=== PATIENT | female | born 1965 | race African-American/Black ===

== ENCOUNTER 2018-11-16 12:12 | Inpatient (IN) | payer OTHER ==
[2018-11-16 12:51] VITALS: BMI 30.7
[2018-11-16] MEDS ORDERED: BENZOCAINE 20 % GEL TUBE MM PRN (13:28)
--- NOTE | 2018-11-16 13:28 | HP ---
CIWA Score - Admission Criteria [facility]ASAS Guidelines: Admission for Medically Managed Detox: Requires at least one of the followin. CIWA greater than 12 2. Seizures within the past 24 hours 3. Delirium tremens within the past 24 hours 4. Hallucinations within the past 24 hours 5. Acute intervention needed for co occurring medical disorder 6. Acute intervention needed for co occurring psychiatric disorder 7. Severe withdrawal that cannot be handled at a lower level of care (continued vomiting, continued diarrhea, abnormal vital signs) requiring intravenous medication and/or fluids 8. Admission ROS S - HPI Chief Complaint: crack/cocaine rehabilitation Allergies/Adverse Reactions: Allergies Allergy/AdvReac Type Severity Reaction Status Date / Time trazodone Allergy Severe Difficulty Verified 11/16/18 12:27 Breathing History of Present Illness: Patient is a 53 yo female with hx of crack /cocaine dependence is here seeking inpatient rehabilitation, report last tx [facility] in 2015, relapsed one year ago. PMHX: HIV right side sciatica (tx with medical marijuana), HDL Psych: anxiety, bipolar, insomnia and depression Denies SI/HI Denies hx of seizures or blackouts Exam Limitations: No Limitations - Ebola screening Have you traveled outside of the country in the last 21 days: No Have you had contact with anyone from an Ebola affected area: No Do you have a fever: No - Review of Systems Constitutional: Changes in sleep EENT: reports: Dental Problems (pending oral sx, multiple caries) Respiratory: reports: No Symptoms reported Cardiac: reports: No Symptoms Reported GI: reports: No Symptoms Reported : reports: No Symptoms Reported Musculoskeletal: reports: Back Pain (right side sciatica) Integumentary: reports: No Symptoms Reported Neuro: reports: No Symptoms reported Endocrine: reports: No Symptoms Reported Hematology: reports: See HPI, Anemia Psychiatric: reports: Orientated x3, Anxious Other Systems: Reviewed and Negative Patient History - Patient Medical History Hx Anemia: No Hx Asthma: No Hx Chronic Obstructive Pulmonary Disease (COPD): No Hx Cancer: No Hx Cardiac Disorders: No Hx Congestive Heart Failure: No Hx Hypertension: No Hx Hypercholesterolemia: Yes Hx Pacemaker: No HX Cerebrovascular Accident: No Hx Seizures: No Hx Dementia: No Hx Diabetes: No Hx Gastrointestinal Disorders: Yes Hx Genitourinary Disorders: No Hx Sexually Transmitted Disorders: (Syphillis 1997 and treated) Hx Renal Disease (ESRD): No Hx Thyroid Disease: No Hx Human Immunodeficiency Virus (HIV): Yes (1988-tx'ed at [facility] , last (08/2015) [id number] , vl undetectable) Hx Hepatitis C: No Hx Depression: Yes Hx Suicide Attempt: Yes (1996, 2010) Hx Bipolar Disorder: Yes Hx Schizophrenia: No - Patient Surgical History Past Surgical History: Yes Hx Neurologic Surgery: No Hx Cataract Extraction: No Hx Cardiac Surgery: No Hx Lung Surgery: No Hx Breast Surgery: No Hx Breast Biopsy: No Hx Abdominal Surgery: No Hx Appendectomy: No Hx Cholecystectomy: No Hx Genitourinary Surgery: Yes (partial hysterectomy ) Hx Section: Yes (x2 ) Hx Orthopedic Surgery: No Anesthesia Reaction: No - PPD History Previous Implant?: No (hx of TB expore in the past with Neg chest x-ray ) Date: 10/29/15 PPD to be Administered?: No - Reproductive History Last Menstrual Period: 10/31/94 Patient : No - Smoking Cessation Smoking history: Current every day smoker Have you smoked in the past 12 months: Yes Aproximately how many cigarettes per day: 5 Cigars Per Day: 0 Hx Chewing Tobacco Use: No Initiated information on smoking cessation: Yes 'Breaking Loose' booklet given: 11/16/18 - Substance & Tx. History Hx Alcohol Use: No Hx Substance Use: Yes Substance Use Type: Cocaine Hx Substance Use Treatment: Yes ([facility] 2016 rehab ) - Substances abused Crack Substance route: Smoking Frequency: Daily Amount used: $300 Age of first use: 28 Date of last use: 11/14/18 Family Disease History - Family Disease History Family Disease History: CA: Grandparent (breast), Other: Mother (alcohol related illness - ) Admission Physical Exam [facility] - Vital Signs Vital Signs: Vital Signs - 24 hr 11/16/18 11/16/18 12:20 12:59 Temperature 97.4 F L 97.4 F L Pulse Rate 85 85 Respiratory 17 17 Rate Blood Pressure 96/74 96/74 - Physical General Appearance: Yes: Appropriately Dressed, Irritable HEENTM: Yes: EOMI, Hearing grossly Normal, Normal ENT Inspection, KIYA, Pharynx Normal, Tm's normal, Other (poor dentition, multiple caries) Respiratory: Yes: Chest Non-Tender, Lungs Clear, Normal Breath Sounds, No Respiratory Distress, No Accessory Muscle Use Neck: Yes: Within Normal Limits Breast: Yes: Breast Exam Deferred Cardiology: Yes: Regular Rhythm Abdominal: Yes: Normal Bowel Sounds, Non Tender, Flat, Soft Genitourinary: Yes: Within Normal Limits Back: Yes: Normal Inspection Musculoskeletal: Yes: full range of Motion, Gait Steady, Pelvis Stable, Back pain (right sided) Extremities: Yes: Normal Capillary Refill, Normal Inspection, Normal Range of Motion, Non-Tender Neurological: Yes: dot compliance coordinator II-XII NML intact, Fully Oriented, Alert, Motor Strength 5/5, Depressed Affect Integumentary: Yes: Normal Color, Dry, Warm Lymphatic: Yes: Within Normal Limits - Diagnostic (1) Sciatica, right side Current Visit: Yes Status: Chronic (2) Cocaine dependence Current Visit: Yes Status: Acute Qualifiers: Substance use status: uncomplicated Qualified Code(s): F14.20 - Cocaine dependence, uncomplicated (3) HIV (human immunodeficiency virus infection) Current Visit: Yes Status: Chronic (4) Hyperlipidemia Current Visit: Yes Status: Chronic Qualifiers: Hyperlipidemia type: unspecified Qualified Code(s): E78.5 - Hyperlipidemia , unspecified (5) Nicotine dependence Current Visit: Yes Status: Chronic Qualifiers: Nicotine product type: cigarettes Substance use status: uncomplicated Qualified Code(s): F17.210 - Nicotine dependence, cigarettes, uncomplicated (6) Obesity Current Visit: Yes Status: Chronic Qualifiers: Obesity type: unspecified obesity type Obesity classification: adult class 1 (BMI 30 - 34.9) Breathalyzer - Breathalyzer Breathalyzer: 0 Urine Drug Screen - Test Device Lot number: [id number] Expiration date: 07/12/20 - Control Is test valid?: Yes - Results Drug screen NEGATIVE: No Urine drug screen results: THC-Marijuana, ROLLY-Cocaine Inpatient Rehab Admission - Rehab Decision to Admit Inpatient rehab admission?: Yes - Initial Determination Are CD services needed?: Yes Free of communicable disease: Yes Not in need of hospitalization: Yes - Rehab Admission Criteria Previous failed treatment: Yes Poor recovery environment: Yes Comorbidities: Yes Lacks judgement: Yes Patient is meeting Inpatient Rehab admission criteria:: Yes
[2018-11-16] MEDS ORDERED: ACETAMINOPHEN 325 MG TABLET (FP) PO PRN (13:29)
[2018-11-16] MEDS ORDERED: guaiFENesin 200 MG/10 ML 10 ML UNIT-DOSE CUPS PO PRN (13:29)
[2018-11-16] MEDS ORDERED: P-EPHED 60MG/TRIPROLIDI 2.5MG TABLET PO PRN (13:29)
[2018-11-16] MEDS ORDERED: LOPERAMIDE HCL 2 MG CAPSULE PO PRN (13:29)
[2018-11-16] MEDS ORDERED: MAGNESIUM CITRATE 300 ML BOTTLE PO PRN (13:29)
[2018-11-16] MEDS ORDERED: MENTHOL/PHENOL 1 EACH UD MM PRN (13:29)
[2018-11-16] MEDS ORDERED: MAGNESIUM HYDROX 2400MG/30ML ORAL SUSPENSION 30 ML CUP PO PRN (13:29)
[2018-11-16] MEDS ORDERED: hydrOXYzine PAMOATE 25 MG CAPSULE (FP) PO PRN (13:29)
[2018-11-16] MEDS ORDERED: NICOTINE POLACRILEX 2 MG GUM BUC PRN (13:29)
--- NOTE | 2018-11-16 13:41 | PN ---
Vickie Progress Note Note: Patient reports she does not wish to take her HARRT meds while in rehab, and that is the reason she did not bring her medications.
[2018-11-16] MEDS: GABAPENTIN 300 MG CAPSULE (FP) PO SCH ×2 (15:16→21:17)
[2018-11-16] MEDS: CYCLOBENZAPRINE HCL 10 MG TABLET (FP) PO SCH ×2 (15:16→21:17)
[2018-11-16 17:51] LABS: HEMATOCRIT 37.2 % (32.4-45.2); HEMOGLOBIN 12.2 GM/dL (10.7-15.3); MCHC 32.8 g/dl (32.0-36.0); MEAN CELL VOLUME 88.4 fl (80-96); MEAN PLT VOLUME 9.8 fl (7.5-11.1); PLATELET COUNT 242 K/MM3 (134-434); RBC 4.21 M/mm3 (3.60-5.2); RDW 14.4 % (11.6-15.6); WHITE BLOOD COUNT 2.2 K/mm3 (4.0-10.0)
[2018-11-16 18:18] LABS: ALBUMIN 3.5 g/dl (3.4-5.0); BILIRUBIN,TOTAL 0.5 mg/dL (0.2-1); BLOOD UREA NITROGEN 15.1 mg/dL (7-18); CALCIUM 8.8 mg/dL (8.5-10.1); CREATININE 1.1 mg/dL (0.55-1.3); POTASSIUM 3.6 mmol/L (3.5-5.1)
[2018-11-16] MEDS: THIAMINE HCL 100 MG TABLET (FP) PO SCH (21:16)
[2018-11-17] MEDS: GABAPENTIN 300 MG CAPSULE (FP) PO SCH ×3 (07:30→21:44)
[2018-11-17] MEDS: CYCLOBENZAPRINE HCL 10 MG TABLET (FP) PO SCH ×3 (07:30→21:44)
[2018-11-17] MEDS: NICOTINE 14 MG/24 HOURS TOPICAL PATCH TD SCH (10:26)
[2018-11-17] MEDS: PRENATAL VITAMINS W/ FOLIC ACID TABLET (FP) PO SCH (10:26)
[2018-11-17] MEDS: ASPIRIN 81 MG CHEWABLE TABLETS PO SCH (10:27)
[2018-11-17] MEDS: ATORVASTATIN CA 10 MG TABLET (FP) PO SCH (10:27)
[2018-11-17] MEDS: PANTOPRAZOLE 20 MG TABLET (FP) PO SCH (10:27)
--- NOTE | 2018-11-17 11:04 | CONSULT ---
[facility] Psychiatric Consult - Data Date of interview: 11/17/18 Admission source: [facility] Identifying data: Readmission to [facility] for this 53 y/o AA female, directly admitted to [address] from [facility], for rehabilitative care addressing crack/cocaine use disorder co-morbid with bipolar disorder. Patient is single, a mother of two, domiciled, unemployed and supported on SSI benefits. Substance Abuse History: Discussed with patient. Ms Nugent admits to a long history of crack abuse. Details in current [facility] report as follows : Smoking history: Current every day smoker. Have you smoked in the past 12 months: Yes. Aproximately how many cigarettes per day: 5. Cigars Per Day: 0. Hx Chewing Tobacco Use: No. Initiated information on smoking cessation: Yes. 'Breaking Loose' booklet given: 11/16/18. - Substance & Tx. History. Hx Alcohol Use: No. Hx Substance Use: Yes. Substance Use Type: Cocaine. Hx Substance Use Treatment: Yes ([facility] 2016 rehab ). - Substances abused. Crack. Substance route: Smoking. Frequency: Daily. Amount used: $300. Age of first use: 28. Date of last use: 11/14/18 Medical History: Medical profile is remarkable for HIV infection since 1988 (on HAART medications), dyslipidemia, sciatica (right leg), antecedent of syphilis and a history of two sections. Noted allergy to trazodone. Psychiatric History: Patient endorses a long history of psychiatric illness. Ms Nugent has reportedly been seeing psychiatrists since 2000 after her suicide attempt via overdose with vitamins. Presents with a history of four psychiatric hospitalizations (all at [facility]). Diagnosed with Bipolar Disorder. Patient has been treated with various psychotropic medications which include valproate, risperidone, wellbutrin XL, sertaline, cogentin and zolpidem. She is currently receiving her psychiatric OPD services at [facility] in the [place] (managed with depakote 500 mg/bid + wellbutrin XL 150 mg/day + cogentin 1 mg/bid + risperdal 3 mg/hs). Not verified at time of this interview. Distant history of suicide attempts (2000 + 2010) via overdose with medications. Physical/Sexual Abuse/Trauma History: Not discussed. Patient declines. Additional Comment: Urine drug screen results: THC-Marijuana, ROLLY-Cocaine. Noted. Mental Status Exam - Mental Status Exam Alert and Oriented to: Time, Place, Person Cognitive Function: Good Patient Appearance: Well Groomed Mood: Nervous, Anxious, Irritable Affect: Appropriate, Mood Congruent, Normal Range Patient Behavior: Fatigued, Cooperative Speech Pattern: Clear, Appropriate Voice Loudness: Normal Thought Process: Goal Oriented Thought Disorder: Not Present Hallucinations: Denies Suicidal Ideation: Denies Homicidal Ideation: Denies Insight/Judgement: Fair Sleep: Well (complains of sleeping " too much " during daytime) Appetite: Good Gait/Station: Normal Psychiatric Findings - Problem List ([place] 1, 2,3) (1) History of bipolar disorder Current Visit: Yes Status: Chronic (2) Cocaine dependence Current Visit: Yes Status: Chronic Qualifiers: Substance use status: uncomplicated Qualified Code(s): F14.20 - Cocaine dependence, uncomplicated (3) Nicotine dependence Current Visit: Yes Status: Chronic Qualifiers: Nicotine product type: cigarettes Substance use status: uncomplicated Qualified Code(s): F17.210 - Nicotine dependence, cigarettes, uncomplicated (4) Substance induced mood disorder Current Visit: Yes Status: Chronic - Initial Treatment Plan Initial Treatment Plan: Records revisited. Director Of Analytical Development [phone] for verification of medications. No information (only voice mail). Message not left on machine (issue of confidentality). Psychoeducation. Support. Groups. Motivational counseling. Patient will be provided with information on relapse prevention (MAT). Ms Nugent requests decrease of valproate dose (believes that it is responsible for her sedation + sleepiness). Medications are on hold until bottles are checked for accuracy of doses. Observation. Discussed with nurse in charge. VA level = 7.2 (suggestive of poor adherence).
[2018-11-17 13:34] LABS: EPI CELLS 16.2 /HPF (0-5/HPF); HYALINE CASTS 9 /lpf (0-8); URINE APPEARANCE CLOUDY; URINE BILIRUBIN NEGATIVE (NEGATIVE); URINE COLOR YELLOW; URINE GLUCOSE (UA) NEGATIVE (NEGATIVE); URINE KETONE NEGATIVE (NEGATIVE); URINE LEUK ESTERASE 3+ (NEGATIVE); URINE NITRITE NEGATIVE (NEGATIVE); URINE PROTEIN TRACE (NEGATIVE); URINE RBC 3 /hpf (0-4); URINE UROBILINOGEN 0.2 mg/dL (0.2-1.0); URINE WBC 323 /hpf (0-5)
[2018-11-17] MEDS: THIAMINE HCL 100 MG TABLET (FP) PO SCH (21:44)
[2018-11-18] MEDS: CYCLOBENZAPRINE HCL 10 MG TABLET (FP) PO SCH ×3 (06:25→21:35)
[2018-11-18] MEDS: GABAPENTIN 300 MG CAPSULE (FP) PO SCH ×3 (06:25→21:35)
[2018-11-18] MEDS: PANTOPRAZOLE 20 MG TABLET (FP) PO SCH (09:03)
[2018-11-18] MEDS: NICOTINE 14 MG/24 HOURS TOPICAL PATCH TD SCH (09:03)
[2018-11-18] MEDS: PRENATAL VITAMINS W/ FOLIC ACID TABLET (FP) PO SCH (09:03)
[2018-11-18] MEDS: ATORVASTATIN CA 10 MG TABLET (FP) PO SCH (09:03)
[2018-11-18] MEDS: ASPIRIN 81 MG CHEWABLE TABLETS PO SCH (09:04)
--- NOTE | 2018-11-18 13:59 | EKG ---
Test Reason : Blood Pressure : / mmHG Vent. Rate : 073 BPM Atrial Rate : 073 BPM P-R Int : 146 ms QRS Dur : 086 ms QT Int : 394 ms P-R-T Axes : 068 -18 054 degrees QTc Int : 434 ms NORMAL SINUS RHYTHM NORMAL ECG NO PREVIOUS ECGS AVAILABLE Confirmed by MD LORENZO, KALEB ([id number]) on 11/18/2018 1:59:09 PM Referred By: Confirmed By:KALEB VENTURA MD
[2018-11-18] MEDS: THIAMINE HCL 100 MG TABLET (FP) PO SCH (21:34)
[2018-11-19] MEDS: CYCLOBENZAPRINE HCL 10 MG TABLET (FP) PO SCH ×3 (06:28→21:29)
[2018-11-19] MEDS: GABAPENTIN 300 MG CAPSULE (FP) PO SCH ×3 (06:28→21:29)
[2018-11-19] MEDS: ATORVASTATIN CA 10 MG TABLET (FP) PO SCH (09:03)
[2018-11-19] MEDS: NICOTINE 14 MG/24 HOURS TOPICAL PATCH TD SCH (09:03)
[2018-11-19] MEDS: ASPIRIN 81 MG CHEWABLE TABLETS PO SCH (09:03)
[2018-11-19] MEDS: PRENATAL VITAMINS W/ FOLIC ACID TABLET (FP) PO SCH (09:04)
[2018-11-19] MEDS: PANTOPRAZOLE 20 MG TABLET (FP) PO SCH (09:04)
--- NOTE | 2018-11-19 10:58 | PN ---
Psychiatric Progress Note Vital Signs: Vital Signs Period Temp Pulse Resp BP Sys/Whipple Pulse Ox Last 24 Hr 97.7 F 75 18-18 107/73 Date of Session: 11/19/18 Chief Complaint:: " I need my psych meds." HPI: This is day four of rehab. Patient admitted to for cocaine dependence co -morbid Bipolar disorder. ROS: Patient is coherent, alert and oriented X3. Current Medications: Active Medications Generic Name Dose Route Start Last Admin Trade Name Freq PRN Reason Stop Dose Admin Acetaminophen 650 mg 11/16/18 13:29 Tylenol - PO Q4H PRN FEVER Al Hydroxide/Mg Hydroxide 30 ml 11/16/18 13:29 Mylanta Oral Suspension - PO Q6H PRN DYSPEPSIA Aspirin 81 mg 11/17/18 10:00 11/19/18 09:03 Asa - PO 81 mg DAILY FIONA Administration Atorvastatin Calcium 10 mg 11/17/18 10:00 11/19/18 09:03 Lipitor - PO 10 mg DAILY FIONA Administration Benzocaine 1 applic 11/16/18 13:28 Anbesol - MM Q6H PRN dentalgia Benztropine Mesylate 0.5 mg 11/19/18 22:00 Cogentin - PO HS FIONA Cyclobenzaprine HCl 10 mg 11/16/18 14:40 11/19/18 06:28 Flexeril - PO 10 mg TID FIONA Administration Divalproex Sodium 500 mg 11/19/18 11:00 Depakote - PO BID [facility] Ergocalciferol 50,000 unit 11/23/18 10:00 Drisdol - PO Q7D@1000 [facility] Eucalyptus/Menthol/Phenol/Sorbitol 1 each 11/16/18 13:29 Cepastat Lozenge - MM Q4H PRN SORE THROAT Gabapentin 600 mg 11/16/18 14:35 11/19/18 06:28 Neurontin - PO 600 mg TID FIONA Administration Guaifenesin 10 ml 11/16/18 13:29 Robitussin - PO Q6H PRN COUGH Hydroxyzine Pamoate 25 mg 11/16/18 13:29 11/18/18 09:04 Vistaril - PO 25 mg Q4H PRN Administration AGITATION Ibuprofen 400 mg 11/16/18 13:29 Motrin - PO Q6H PRN Pain level 4-6 Loperamide HCl 4 mg 11/16/18 13:29 Imodium - PO Q6H PRN DIARRHEA Magnesium Citrate 300 ml 11/16/18 13:29 11/18/18 09:02 Citroma - PO 300 ml Q48H PRN Administration CONSTIPATION Magnesium Hydroxide 30 ml 11/16/18 13:29 11/17/18 17:25 Milk Of Magnesia - PO 30 ml DAILY PRN Administration CONSTIPATION Melatonin 5 mg 11/16/18 22:00 Melatonin PO HS PRN INSOMNIA Nicotine 14 mg 11/17/18 10:00 11/19/18 09:03 Nicoderm Patch - TD 14 mg DAILY FIONA Administration Nicotine Polacrilex 2 mg 11/16/18 13:29 Nicorette Gum - BUC Q2H PRN NICOTINE REPLACEMENT RX Pantoprazole Sodium 20 mg 11/17/18 10:00 11/19/18 09:04 Protonix - PO 20 mg DAILY FIONA Administration Multivit/Folic Acid/Iron 1 tab 11/17/18 10:00 11/19/18 09:04 Vitamins (Sjr) - PO 1 tab DAILY FIONA Administration Pseudoephedrine/Triprolidine 1 combo 11/16/18 13:29 Actifed - PO TID PRN NASAL CONGESTION Sertraline HCl 50 mg 11/19/18 11:00 Zoloft - PO DAILY FIONA Thiamine HCl 100 mg 11/16/18 22:00 11/18/18 21:34 Vitamin B1 - PO 100 mg HS FIONA Administration Medication(s) Change(s): Yes. Current Side Effect: No Lab tests ordered: No Lab tests reviewed: Yes Provider note:: Patient seen today concerning her psychiatric medications. Dr. Thompson's note read and appreciated. Patient with a history of bipolar disorder. States she is currently receiving outpatient psychiatric care at the [facility]. Application Security Developer able to contact [facility] pharmacy at [phone] and able to speak to pharmacist. As per pharmacist patient's most recent prescription of psychotropic medications are Zoloft 50mg + Depakote 500mg BID + Cogentin 0.5mg HS. ( 30 day prescriptions dispensed on 10/25/18.) Patient in agreement to resume psychotropic medications. Total face to face time:: 25 Mental Status Exam - Mental Status Exam Alert and Oriented to: Time, Place, Person Cognitive Function: Good Patient Appearance: Well Groomed Mood: Euthymic Affect: Mood Congruent Patient Behavior: Cooperative Speech Pattern: Appropriate Voice Loudness: Normal Thought Process: Goal Oriented Thought Disorder: Not Present Hallucinations: Denies Suicidal Ideation: Denies Homicidal Ideation: Denies Insight/Judgement: Poor Sleep: Fair Appetite: Fair Muscle strength/Tone: Normal Gait/Station: Normal Psychiatric Treatment Plan - Problem List (1) Cocaine dependence Current Visit: Yes Qualifiers: Substance use status: uncomplicated Qualified Code(s): F14.20 - Cocaine dependence, uncomplicated (2) History of bipolar disorder Current Visit: Yes (3) Nicotine dependence Current Visit: Yes Qualifiers: Nicotine product type: cigarettes Substance use status: uncomplicated Qualified Code(s): F17.210 - Nicotine dependence, cigarettes, uncomplicated (4) Substance induced mood disorder Current Visit: Yes
[2018-11-19] MEDS: DIVALPROEX SODIUM 250 MG TABLET E.C. PO SCH ×2 (11:16→21:29)
[2018-11-19] MEDS: SERTRALINE HCL 50 MG TABLET (FP) PO SCH (11:17)
--- NOTE | 2018-11-19 12:22 | PN ---
[facility] Progress Note Note: Patient seen due to request to have Odefsey HARRT medication ordered. As per admission note, patient did not bring medication with her as she did not want to take medication while in rehab. Operations Lieutenant spoke with patient and stated the same to provider that she does not want to take Odefsey while in rehab and reports last dose 5 days ago. Medication not ordered as requested. Vital Signs Temperature 97.7 F 11/19/18 07:01 Pulse Rate 75 11/19/18 07:01 Respiratory Rate 18 11/19/18 07:01 Blood Pressure 107/73 11/19/18 07:01 O2 Sat by Pulse Oximetry (%) Laboratory Tests 11/16/18 11/16/18 11/16/18 11:10 12:45 12:45 WBC 2.2 L RBC 4.21 Hgb 12.2 Hct 37.2 MCV 88.4 MCH 29.0 MCHC 32.8 RDW 14.4 Plt Count 242 MPV 9.8 Sodium 141 Potassium 3.6 Chloride 107 Carbon Dioxide 29 Anion Gap 5 L BUN 15.1 Creatinine 1.1 Est GFR (CKD-EPI)AfAm 66.85 Est GFR (CKD-EPI)NonAf 57.68 Random Glucose 87 Calcium 8.8 Total Bilirubin 0.5 AST 16 ALT 18 Alkaline Phosphatase 84 Total Protein 8.0 Albumin 3.5 Urine Color Yellow Urine Appearance Cloudy Urine pH 6.0 Ur Specific Supai 1.022 Urine Protein Trace Urine Glucose (UA) Negative Urine Ketones Negative Urine Blood 1+ H Urine Nitrite Negative Urine Bilirubin Negative Urine Urobilinogen 0.2 Ur Leukocyte Esterase 3+ H Urine WBC (Auto) 323 Urine RBC (Auto) 3 Urine Casts (Auto) 9 U Epithel Cells (Auto) 16.2 Urine Crystals (Auto) Urine Bacteria (Auto) 3497.0 POC Urine HCG, Qual Valproic Acid RPR Titer 11/16/18 11/16/18 11/17/18 12:45 13:00 05:50 WBC RBC Hgb Hct MCV MCH MCHC RDW Plt Count MPV Sodium Potassium Chloride Carbon Dioxide Anion Gap BUN Creatinine Est GFR (CKD-EPI)AfAm Est GFR (CKD-EPI)NonAf Random Glucose Calcium Total Bilirubin AST ALT Alkaline Phosphatase Total Protein Albumin Urine Color Urine Appearance Urine pH Ur Specific Supai Urine Protein Urine Glucose (UA) Urine Ketones Urine Blood Urine Nitrite Urine Bilirubin Urine Urobilinogen Ur Leukocyte Esterase Urine WBC (Auto) Urine RBC (Auto) Urine Casts (Auto) U Epithel Cells (Auto) Urine Crystals (Auto) Urine Bacteria (Auto) POC Urine HCG, Qual Negative Valproic Acid 7.0 L RPR Titer Nonreactive UA results appreciated. Will repeat UA.
[2018-11-19 18:49] LABS: EPI CELLS 13.3 /HPF (0-5/HPF); HYALINE CASTS 1 /lpf (0-8); PH,URINE >= 9.0 (5.0-8.0); URINE APPEARANCE CLEAR; URINE BACTERIA 648.5 /hpf (NEGATIVE); URINE BILIRUBIN NEGATIVE (NEGATIVE); URINE COLOR YELLOW; URINE GLUCOSE (UA) NEGATIVE (NEGATIVE); URINE KETONE NEGATIVE (NEGATIVE); URINE LEUK ESTERASE 2+ (NEGATIVE); URINE NITRITE NEGATIVE (NEGATIVE); URINE PROTEIN NEGATIVE (NEGATIVE); URINE RBC 2 /hpf (0-4); URINE UROBILINOGEN 0.2 mg/dL (0.2-1.0); URINE WBC 11 /hpf (0-5)
[2018-11-19] MEDS: THIAMINE HCL 100 MG TABLET (FP) PO SCH (21:29)
[2018-11-19] MEDS: BENZTROPINE MESYLATE 1 MG TABLET (FP) PO SCH (21:31)
[2018-11-20] MEDS: GABAPENTIN 300 MG CAPSULE (FP) PO SCH ×3 (06:23→21:31)
[2018-11-20] MEDS: CYCLOBENZAPRINE HCL 10 MG TABLET (FP) PO SCH ×3 (06:23→21:31)
[2018-11-20] MEDS: PRENATAL VITAMINS W/ FOLIC ACID TABLET (FP) PO SCH (09:45)
[2018-11-20] MEDS: DIVALPROEX SODIUM 250 MG TABLET E.C. PO SCH ×2 (09:45→21:31)
[2018-11-20] MEDS: NICOTINE 14 MG/24 HOURS TOPICAL PATCH TD SCH (09:45)
[2018-11-20] MEDS: PANTOPRAZOLE 20 MG TABLET (FP) PO SCH (09:45)
[2018-11-20] MEDS: ASPIRIN 81 MG CHEWABLE TABLETS PO SCH (09:45)
[2018-11-20] MEDS: ATORVASTATIN CA 10 MG TABLET (FP) PO SCH (09:45)
[2018-11-20] MEDS: SERTRALINE HCL 50 MG TABLET (FP) PO SCH (09:45)
[2018-11-20] MEDS: THIAMINE HCL 100 MG TABLET (FP) PO SCH (21:31)
[2018-11-20] MEDS: BENZTROPINE MESYLATE 1 MG TABLET (FP) PO SCH (21:31)
[2018-11-21] MEDS: CYCLOBENZAPRINE HCL 10 MG TABLET (FP) PO SCH ×3 (06:26→21:25)
[2018-11-21] MEDS: GABAPENTIN 300 MG CAPSULE (FP) PO SCH ×3 (06:26→21:26)
[2018-11-21] MEDS: ATORVASTATIN CA 10 MG TABLET (FP) PO SCH (10:05)
[2018-11-21] MEDS: ASPIRIN 81 MG CHEWABLE TABLETS PO SCH (10:05)
[2018-11-21] MEDS: DIVALPROEX SODIUM 250 MG TABLET E.C. PO SCH ×2 (10:05→21:25)
[2018-11-21] MEDS: NICOTINE 14 MG/24 HOURS TOPICAL PATCH TD SCH (10:06)
[2018-11-21] MEDS: PRENATAL VITAMINS W/ FOLIC ACID TABLET (FP) PO SCH (10:06)
[2018-11-21] MEDS: SERTRALINE HCL 50 MG TABLET (FP) PO SCH (10:06)
[2018-11-21] MEDS: PANTOPRAZOLE 20 MG TABLET (FP) PO SCH (10:06)
[2018-11-21] MEDS: IBUPROFEN 400 MG TABLET (FP) PO PRN (11:55)
[2018-11-21] MEDS: THIAMINE HCL 100 MG TABLET (FP) PO SCH (21:25)
[2018-11-21] MEDS: BENZTROPINE MESYLATE 1 MG TABLET (FP) PO SCH (21:25)
[2018-11-21] MEDS: MELATONIN 5 MG TABLETS PO PRN (21:26)
[2018-11-22] MEDS: GABAPENTIN 300 MG CAPSULE (FP) PO SCH ×3 (06:21→21:30)
[2018-11-22] MEDS: CYCLOBENZAPRINE HCL 10 MG TABLET (FP) PO SCH ×3 (06:21→21:30)
[2018-11-22] MEDS: DIVALPROEX SODIUM 250 MG TABLET E.C. PO SCH ×2 (09:35→21:30)
[2018-11-22] MEDS: ASPIRIN 81 MG CHEWABLE TABLETS PO SCH (09:35)
[2018-11-22] MEDS: PRENATAL VITAMINS W/ FOLIC ACID TABLET (FP) PO SCH (09:35)
[2018-11-22] MEDS: ATORVASTATIN CA 10 MG TABLET (FP) PO SCH (09:35)
[2018-11-22] MEDS: SERTRALINE HCL 50 MG TABLET (FP) PO SCH (09:36)
[2018-11-22] MEDS: PANTOPRAZOLE 20 MG TABLET (FP) PO SCH (09:36)
[2018-11-22] MEDS: NICOTINE 14 MG/24 HOURS TOPICAL PATCH TD SCH (09:36)
[2018-11-22] MEDS: SIMETHICONE 80 MG TAB.CHEW (FP) PO PRN ×3 (14:05→21:30)
[2018-11-22] MEDS ORDERED: PT OWN MED DRAWER 7, Y5N ONE (15:30)
[2018-11-22] MEDS: THIAMINE HCL 100 MG TABLET (FP) PO SCH (21:29)
[2018-11-22] MEDS: BENZTROPINE MESYLATE 1 MG TABLET (FP) PO SCH (21:30)
[2018-11-23] MEDS: GABAPENTIN 300 MG CAPSULE (FP) PO SCH ×3 (06:48→21:45)
[2018-11-23] MEDS: SIMETHICONE 80 MG TAB.CHEW (FP) PO PRN ×3 (06:48→18:54)
[2018-11-23] MEDS ORDERED: PT OWN MED DRAWER 7, Y5N ONE ×4 (06:48→18:54)
[2018-11-23] MEDS: CYCLOBENZAPRINE HCL 10 MG TABLET (FP) PO SCH ×3 (06:48→21:45)
[2018-11-23] MEDS: ASPIRIN 81 MG CHEWABLE TABLETS PO SCH (09:00)
[2018-11-23] MEDS: ATORVASTATIN CA 10 MG TABLET (FP) PO SCH (09:00)
[2018-11-23] MEDS: NICOTINE 14 MG/24 HOURS TOPICAL PATCH TD SCH (09:00)
[2018-11-23] MEDS: PRENATAL VITAMINS W/ FOLIC ACID TABLET (FP) PO SCH (09:00)
[2018-11-23] MEDS: SERTRALINE HCL 50 MG TABLET (FP) PO SCH (09:01)
[2018-11-23] MEDS: ERGOCALCIFEROL (VIT D2) 50,000 UNIT (1.25 MG) CAPSULE PO SCH (09:01)
[2018-11-23] MEDS: PANTOPRAZOLE 20 MG TABLET (FP) PO SCH (09:01)
[2018-11-23] MEDS: DIVALPROEX SODIUM 250 MG TABLET E.C. PO SCH ×2 (09:01→21:45)
[2018-11-23] MEDS: BENZTROPINE MESYLATE 1 MG TABLET (FP) PO SCH (21:45)
[2018-11-23] MEDS: THIAMINE HCL 100 MG TABLET (FP) PO SCH (21:45)
[2018-11-23] MEDS: MELATONIN 5 MG TABLETS PO PRN (21:46)
[2018-11-23] MEDS: MAG HYDROX/AL HYDROX/SIMETH 30 ML UNIT-DOSE CUP PO PRN (22:02)
[2018-11-24] MEDS: SIMETHICONE 80 MG TAB.CHEW (FP) PO PRN ×2 (06:13→18:37)
[2018-11-24] MEDS: GABAPENTIN 300 MG CAPSULE (FP) PO SCH ×3 (06:13→21:21)
[2018-11-24] MEDS: CYCLOBENZAPRINE HCL 10 MG TABLET (FP) PO SCH ×3 (06:13→21:22)
[2018-11-24] MEDS: MAG HYDROX/AL HYDROX/SIMETH 30 ML UNIT-DOSE CUP PO PRN (07:48)
[2018-11-24] MEDS: ATORVASTATIN CA 10 MG TABLET (FP) PO SCH (09:55)
[2018-11-24] MEDS: DIVALPROEX SODIUM 250 MG TABLET E.C. PO SCH ×2 (09:55→21:21)
[2018-11-24] MEDS: ASPIRIN 81 MG CHEWABLE TABLETS PO SCH (09:55)
[2018-11-24] MEDS: PRENATAL VITAMINS W/ FOLIC ACID TABLET (FP) PO SCH (09:56)
[2018-11-24] MEDS: NICOTINE 14 MG/24 HOURS TOPICAL PATCH TD SCH (09:56)
[2018-11-24] MEDS: SERTRALINE HCL 50 MG TABLET (FP) PO SCH (09:56)
[2018-11-24] MEDS: PANTOPRAZOLE 20 MG TABLET (FP) PO SCH (09:56)
[2018-11-24] MEDS ORDERED: PT OWN MED DRAWER 7, Y5N ONE ×2 (12:32→18:37)
[2018-11-24] MEDS: THIAMINE HCL 100 MG TABLET (FP) PO SCH (21:21)
[2018-11-24] MEDS: BENZTROPINE MESYLATE 1 MG TABLET (FP) PO SCH (21:21)
[2018-11-24] MEDS: MELATONIN 5 MG TABLETS PO PRN (21:23)
[2018-11-25] MEDS: GABAPENTIN 300 MG CAPSULE (FP) PO SCH ×3 (06:16→21:44)
[2018-11-25] MEDS: CYCLOBENZAPRINE HCL 10 MG TABLET (FP) PO SCH ×3 (06:16→21:44)
[2018-11-25] MEDS ORDERED: PT OWN MED DRAWER 7, Y5N ONE ×2 (08:15→21:46)
[2018-11-25] MEDS: SIMETHICONE 80 MG TAB.CHEW (FP) PO PRN ×2 (08:16→21:46)
[2018-11-25] MEDS: DIVALPROEX SODIUM 250 MG TABLET E.C. PO SCH ×2 (10:11→21:44)
[2018-11-25] MEDS: PRENATAL VITAMINS W/ FOLIC ACID TABLET (FP) PO SCH (10:11)
[2018-11-25] MEDS: ASPIRIN 81 MG CHEWABLE TABLETS PO SCH (10:11)
[2018-11-25] MEDS: SERTRALINE HCL 50 MG TABLET (FP) PO SCH (10:11)
[2018-11-25] MEDS: ATORVASTATIN CA 10 MG TABLET (FP) PO SCH (10:11)
[2018-11-25] MEDS: NICOTINE 14 MG/24 HOURS TOPICAL PATCH TD SCH (10:11)
[2018-11-25] MEDS: PANTOPRAZOLE 20 MG TABLET (FP) PO SCH (10:11)
[2018-11-25] MEDS: BENZTROPINE MESYLATE 1 MG TABLET (FP) PO SCH (21:44)
[2018-11-25] MEDS: THIAMINE HCL 100 MG TABLET (FP) PO SCH (21:44)
[2018-11-26] MEDS: GABAPENTIN 300 MG CAPSULE (FP) PO SCH ×3 (06:15→21:53)
[2018-11-26] MEDS: CYCLOBENZAPRINE HCL 10 MG TABLET (FP) PO SCH ×3 (06:15→21:54)
[2018-11-26] MEDS ORDERED: PT OWN MED DRAWER 7, Y5N ONE (09:20)
[2018-11-26] MEDS: ASPIRIN 81 MG CHEWABLE TABLETS PO SCH (10:10)
[2018-11-26] MEDS: SIMETHICONE 80 MG TAB.CHEW (FP) PO PRN ×2 (10:10→21:54)
[2018-11-26] MEDS: SERTRALINE HCL 50 MG TABLET (FP) PO SCH (10:10)
[2018-11-26] MEDS: PRENATAL VITAMINS W/ FOLIC ACID TABLET (FP) PO SCH (10:10)
[2018-11-26] MEDS: NICOTINE 14 MG/24 HOURS TOPICAL PATCH TD SCH (10:10)
[2018-11-26] MEDS: ATORVASTATIN CA 10 MG TABLET (FP) PO SCH (10:10)
[2018-11-26] MEDS: DIVALPROEX SODIUM 250 MG TABLET E.C. PO SCH ×2 (10:11→21:54)
[2018-11-26] MEDS: PANTOPRAZOLE 20 MG TABLET (FP) PO SCH (11:58)
--- NOTE | 2018-11-26 12:53 | PN ---
Psychiatric Progress Note Vital Signs: Vital Signs Period Temp Pulse Resp BP Sys/Whipple Pulse Ox Last 24 Hr 98.2 F 73 18-18 118/81 Date of Session: 11/26/18 Chief Complaint:: " I can't sleep." HPI: Patient with a history of crack/cocaine use disorder co-morbid with bipolar disorder. Patient complaining of difficulty sleeping. ROS: Patient is coherent, alert and oriented X3. Current Medications: Active Medications Generic Name Dose Route Start Last Admin Trade Name Freq PRN Reason Stop Dose Admin Acetaminophen 650 mg 11/16/18 13:29 Tylenol - PO Q4H PRN FEVER Al Hydroxide/Mg Hydroxide 30 ml 11/16/18 13:29 11/24/18 07:48 Mylanta Oral Suspension - PO 30 ml Q6H PRN Administration DYSPEPSIA Aspirin 81 mg 11/17/18 10:00 11/26/18 10:10 Asa - PO 81 mg DAILY FIONA Administration Atorvastatin Calcium 10 mg 11/17/18 10:00 11/26/18 10:10 Lipitor - PO 10 mg DAILY FIONA Administration Benzocaine 1 applic 11/16/18 13:28 Anbesol - MM Q6H PRN dentalgia Benztropine Mesylate 0.5 mg 11/19/18 22:00 11/25/18 21:44 Cogentin - PO 0.5 mg HS FIONA Administration Cyclobenzaprine HCl 10 mg 11/16/18 14:40 11/26/18 06:15 Flexeril - PO 10 mg TID FIONA Administration Divalproex Sodium 500 mg 11/19/18 11:00 11/26/18 10:11 Depakote - PO 500 mg BID FIONA Administration Ergocalciferol 50,000 unit 11/23/18 10:00 11/23/18 09:01 Drisdol - PO 50,000 unit Q7D@1000 FIONA Administration Eucalyptus/Menthol/Phenol/Sorbitol 1 each 11/16/18 13:29 Cepastat Lozenge - MM Q4H PRN SORE THROAT Gabapentin 600 mg 11/16/18 14:35 11/26/18 06:15 Neurontin - PO 600 mg TID FIONA Administration Guaifenesin 10 ml 11/16/18 13:29 Robitussin - PO Q6H PRN COUGH Hydroxyzine HCl 25 mg 11/19/18 15:58 Atarax - PO Q4H PRN AGITATION Ibuprofen 400 mg 11/16/18 13:29 11/21/18 11:55 Motrin - PO 400 mg Q6H PRN Administration Pain level 4-6 Loperamide HCl 4 mg 11/16/18 13:29 Imodium - PO Q6H PRN DIARRHEA Magnesium Citrate 300 ml 11/16/18 13:29 11/18/18 09:02 Citroma - PO 300 ml Q48H PRN Administration CONSTIPATION Magnesium Hydroxide 30 ml 11/16/18 13:29 11/17/18 17:25 Milk Of Magnesia - PO 30 ml DAILY PRN Administration CONSTIPATION Melatonin 5 mg 11/16/18 22:00 11/24/18 21:23 Melatonin PO 5 mg HS PRN Administration INSOMNIA Nicotine 14 mg 11/17/18 10:00 11/26/18 10:10 Nicoderm Patch - TD 14 mg DAILY FIONA Administration Nicotine Polacrilex 2 mg 11/16/18 13:29 Nicorette Gum - BUC Q2H PRN NICOTINE REPLACEMENT RX Pantoprazole Sodium 20 mg 11/17/18 10:00 11/26/18 11:58 Protonix - PO 20 mg DAILY FIONA Administration Multivit/Folic Acid/Iron 1 tab 11/17/18 10:00 11/26/18 10:10 Vitamins (Sjr) - PO 1 tab DAILY FIONA Administration Pseudoephedrine/Triprolidine 1 combo 11/16/18 13:29 Actifed - PO TID PRN NASAL CONGESTION Sertraline HCl 50 mg 11/19/18 11:00 11/26/18 10:10 Zoloft - PO 50 mg DAILY FIONA Administration Simethicone 80 mg 11/22/18 12:25 11/26/18 10:10 Mylicon - PO 80 mg QID PRN Administration GAS Thiamine HCl 100 mg 11/16/18 22:00 11/25/18 21:44 Vitamin B1 - PO 100 mg HS FIONA Administration Medication(s) Change(s): No. Current Side Effect: No Lab tests ordered: No Lab tests reviewed: Yes Provider note:: Patient seen by advertising copywriter due to complaints of insomnia. Patient reports sleeping intermittently through the night. Medication list reviewed and noted that melatonin 5mg is ordered. Patient has only received melatonin 5mg once on 11/24 and reports sleeping well that night. Patient informed to ask for melatonin nightly as it is a prn medication. Patient also educated on the importance of sleep hygiene. Patient satisifed and receptive to feedback. Total face to face time:: 25 Mental Status Exam - Mental Status Exam Alert and Oriented to: Time, Place, Person Cognitive Function: Good Patient Appearance: Well Groomed Mood: Euthymic Affect: Appropriate Patient Behavior: Cooperative Speech Pattern: Appropriate Voice Loudness: Normal Thought Process: Goal Oriented Thought Disorder: Not Present Hallucinations: Denies Suicidal Ideation: Denies Homicidal Ideation: Denies Insight/Judgement: Poor Sleep: Poorly Appetite: Fair Muscle strength/Tone: Normal Gait/Station: Normal Psychiatric Treatment Plan - Problem List (1) Cocaine dependence Current Visit: Yes Qualifiers: Substance use status: uncomplicated Qualified Code(s): F14.20 - Cocaine dependence, uncomplicated (2) History of bipolar disorder Current Visit: Yes (3) Nicotine dependence Current Visit: Yes Qualifiers: Nicotine product type: cigarettes Substance use status: uncomplicated Qualified Code(s): F17.210 - Nicotine dependence, cigarettes, uncomplicated (4) Substance induced mood disorder Current Visit: Yes (5) Insomnia Current Visit: Yes Qualifiers: Insomnia type: unspecified Qualified Code(s): G47.00 - Insomnia, unspecified
[2018-11-26] MEDS: IBUPROFEN 400 MG TABLET (FP) PO PRN (17:44)
[2018-11-26] MEDS: MELATONIN 5 MG TABLETS PO PRN (21:53)
[2018-11-26] MEDS: BENZTROPINE MESYLATE 1 MG TABLET (FP) PO SCH (21:53)
[2018-11-26] MEDS: THIAMINE HCL 100 MG TABLET (FP) PO SCH (21:54)
[2018-11-27] MEDS: GABAPENTIN 300 MG CAPSULE (FP) PO SCH ×3 (06:29→21:56)
[2018-11-27] MEDS: CYCLOBENZAPRINE HCL 10 MG TABLET (FP) PO SCH ×3 (06:29→21:56)
[2018-11-27] MEDS: ASPIRIN 81 MG CHEWABLE TABLETS PO SCH (09:39)
[2018-11-27] MEDS: ATORVASTATIN CA 10 MG TABLET (FP) PO SCH (09:40)
[2018-11-27] MEDS: NICOTINE 14 MG/24 HOURS TOPICAL PATCH TD SCH (09:40)
[2018-11-27] MEDS: DIVALPROEX SODIUM 250 MG TABLET E.C. PO SCH ×2 (09:40→21:56)
[2018-11-27] MEDS: SIMETHICONE 80 MG TAB.CHEW (FP) PO PRN ×2 (09:41→16:32)
[2018-11-27] MEDS: SERTRALINE HCL 50 MG TABLET (FP) PO SCH (09:41)
[2018-11-27] MEDS: PRENATAL VITAMINS W/ FOLIC ACID TABLET (FP) PO SCH (09:41)
[2018-11-27] MEDS: PANTOPRAZOLE 20 MG TABLET (FP) PO SCH (09:41)
[2018-11-27] MEDS ORDERED: PT OWN MED DRAWER 7, Y5N ONE (16:32)
[2018-11-27] MEDS: THIAMINE HCL 100 MG TABLET (FP) PO SCH (21:56)
[2018-11-27] MEDS: MELATONIN 5 MG TABLETS PO PRN (21:56)
[2018-11-27] MEDS: BENZTROPINE MESYLATE 1 MG TABLET (FP) PO SCH (21:57)
[2018-11-28] MEDS: CYCLOBENZAPRINE HCL 10 MG TABLET (FP) PO SCH ×3 (06:32→21:57)
[2018-11-28] MEDS: GABAPENTIN 300 MG CAPSULE (FP) PO SCH ×3 (06:32→21:57)
[2018-11-28] MEDS ORDERED: COLLOIDAL OATMEAL 1 BAR EACH TP PRN (09:19)
[2018-11-28] MEDS: NICOTINE 14 MG/24 HOURS TOPICAL PATCH TD SCH (10:09)
[2018-11-28] MEDS: SIMETHICONE 80 MG TAB.CHEW (FP) PO PRN ×2 (10:09→15:52)
[2018-11-28] MEDS: ATORVASTATIN CA 10 MG TABLET (FP) PO SCH (10:10)
[2018-11-28] MEDS: PRENATAL VITAMINS W/ FOLIC ACID TABLET (FP) PO SCH (10:10)
[2018-11-28] MEDS: ASPIRIN 81 MG CHEWABLE TABLETS PO SCH (10:10)
[2018-11-28] MEDS: PANTOPRAZOLE 20 MG TABLET (FP) PO SCH (10:10)
[2018-11-28] MEDS: SERTRALINE HCL 50 MG TABLET (FP) PO SCH (10:10)
[2018-11-28] MEDS: DIVALPROEX SODIUM 250 MG TABLET E.C. PO SCH ×2 (10:11→21:57)
[2018-11-28] MEDS: hydrOXYzine HCL 25 MG TABLET (FP) PO PRN ×2 (10:12→21:57)
[2018-11-28] MEDS ORDERED: PT OWN MED DRAWER 7, Y5N ONE (15:52)
[2018-11-28] MEDS: THIAMINE HCL 100 MG TABLET (FP) PO SCH (21:57)
[2018-11-28] MEDS: BENZTROPINE MESYLATE 1 MG TABLET (FP) PO SCH (22:20)
[2018-11-29] MEDS: CYCLOBENZAPRINE HCL 10 MG TABLET (FP) PO SCH ×3 (06:30→21:51)
[2018-11-29] MEDS: GABAPENTIN 300 MG CAPSULE (FP) PO SCH ×3 (06:30→21:51)
[2018-11-29] MEDS: ATORVASTATIN CA 10 MG TABLET (FP) PO SCH (10:07)
[2018-11-29] MEDS: ASPIRIN 81 MG CHEWABLE TABLETS PO SCH (10:07)
[2018-11-29] MEDS: DIVALPROEX SODIUM 250 MG TABLET E.C. PO SCH ×2 (10:07→21:52)
[2018-11-29] MEDS: PANTOPRAZOLE 20 MG TABLET (FP) PO SCH (10:07)
[2018-11-29] MEDS: PRENATAL VITAMINS W/ FOLIC ACID TABLET (FP) PO SCH (10:07)
[2018-11-29] MEDS: SIMETHICONE 80 MG TAB.CHEW (FP) PO PRN (10:08)
[2018-11-29] MEDS: SERTRALINE HCL 50 MG TABLET (FP) PO SCH (10:08)
[2018-11-29] MEDS: NICOTINE 14 MG/24 HOURS TOPICAL PATCH TD SCH (10:08)
[2018-11-29] MEDS: THIAMINE HCL 100 MG TABLET (FP) PO SCH (21:51)
[2018-11-29] MEDS: MELATONIN 5 MG TABLETS PO PRN (21:52)
[2018-11-29] MEDS: BENZTROPINE MESYLATE 1 MG TABLET (FP) PO SCH (21:53)
[2018-11-30] MEDS: CYCLOBENZAPRINE HCL 10 MG TABLET (FP) PO SCH ×3 (06:23→21:29)
[2018-11-30] MEDS: GABAPENTIN 300 MG CAPSULE (FP) PO SCH ×3 (06:23→21:28)
[2018-11-30] MEDS: PRENATAL VITAMINS W/ FOLIC ACID TABLET (FP) PO SCH (10:30)
[2018-11-30] MEDS: ASPIRIN 81 MG CHEWABLE TABLETS PO SCH (10:30)
[2018-11-30] MEDS: DIVALPROEX SODIUM 250 MG TABLET E.C. PO SCH ×2 (10:30→21:28)
[2018-11-30] MEDS: ATORVASTATIN CA 10 MG TABLET (FP) PO SCH (10:30)
[2018-11-30] MEDS: SERTRALINE HCL 50 MG TABLET (FP) PO SCH (10:31)
[2018-11-30] MEDS: NICOTINE 14 MG/24 HOURS TOPICAL PATCH TD SCH (10:31)
[2018-11-30] MEDS: PANTOPRAZOLE 20 MG TABLET (FP) PO SCH (10:31)
[2018-11-30] MEDS ORDERED: PT OWN MED DRAWER 7, Y5N ONE ×2 (10:32→10:34)
[2018-11-30] MEDS: SIMETHICONE 80 MG TAB.CHEW (FP) PO PRN (10:32)
[2018-11-30] MEDS: ERGOCALCIFEROL (VIT D2) 50,000 UNIT (1.25 MG) CAPSULE PO SCH (11:31)
[2018-11-30] MEDS: THIAMINE HCL 100 MG TABLET (FP) PO SCH (21:28)
[2018-11-30] MEDS: BENZTROPINE MESYLATE 1 MG TABLET (FP) PO SCH (21:29)
[2018-11-30] MEDS: MELATONIN 5 MG TABLETS PO PRN (21:30)
[2018-12-01] MEDS: CYCLOBENZAPRINE HCL 10 MG TABLET (FP) PO SCH ×3 (06:44→21:15)
[2018-12-01] MEDS: GABAPENTIN 300 MG CAPSULE (FP) PO SCH ×3 (06:44→21:15)
[2018-12-01] MEDS: NICOTINE 14 MG/24 HOURS TOPICAL PATCH TD SCH (10:08)
[2018-12-01] MEDS: SIMETHICONE 80 MG TAB.CHEW (FP) PO PRN (10:08)
[2018-12-01] MEDS: PANTOPRAZOLE 20 MG TABLET (FP) PO SCH (10:09)
[2018-12-01] MEDS: ASPIRIN 81 MG CHEWABLE TABLETS PO SCH (10:09)
[2018-12-01] MEDS: SERTRALINE HCL 50 MG TABLET (FP) PO SCH (10:09)
[2018-12-01] MEDS: PRENATAL VITAMINS W/ FOLIC ACID TABLET (FP) PO SCH (10:09)
[2018-12-01] MEDS: DIVALPROEX SODIUM 250 MG TABLET E.C. PO SCH ×2 (10:09→21:15)
[2018-12-01] MEDS: ATORVASTATIN CA 10 MG TABLET (FP) PO SCH (10:09)
[2018-12-01] MEDS: THIAMINE HCL 100 MG TABLET (FP) PO SCH (21:15)
[2018-12-01] MEDS: hydrOXYzine HCL 25 MG TABLET (FP) PO PRN (21:15)
[2018-12-01] MEDS: MELATONIN 5 MG TABLETS PO PRN (21:16)
[2018-12-01] MEDS: BENZTROPINE MESYLATE 1 MG TABLET (FP) PO SCH (21:16)
[2018-12-02] MEDS: GABAPENTIN 300 MG CAPSULE (FP) PO SCH ×3 (06:12→22:03)
[2018-12-02] MEDS: CYCLOBENZAPRINE HCL 10 MG TABLET (FP) PO SCH ×3 (06:12→22:03)
[2018-12-02] MEDS: NICOTINE 14 MG/24 HOURS TOPICAL PATCH TD SCH (10:36)
[2018-12-02] MEDS: PRENATAL VITAMINS W/ FOLIC ACID TABLET (FP) PO SCH (10:37)
[2018-12-02] MEDS: SIMETHICONE 80 MG TAB.CHEW (FP) PO PRN (10:37)
[2018-12-02] MEDS: DIVALPROEX SODIUM 250 MG TABLET E.C. PO SCH ×2 (10:37→22:03)
[2018-12-02] MEDS: ATORVASTATIN CA 10 MG TABLET (FP) PO SCH (10:37)
[2018-12-02] MEDS: ASPIRIN 81 MG CHEWABLE TABLETS PO SCH (10:37)
[2018-12-02] MEDS: SERTRALINE HCL 50 MG TABLET (FP) PO SCH (10:37)
[2018-12-02] MEDS: PANTOPRAZOLE 20 MG TABLET (FP) PO SCH (10:37)
[2018-12-02] MEDS: IBUPROFEN 400 MG TABLET (FP) PO PRN (19:41)
[2018-12-02] MEDS: THIAMINE HCL 100 MG TABLET (FP) PO SCH (22:03)
[2018-12-02] MEDS: BENZTROPINE MESYLATE 1 MG TABLET (FP) PO SCH (22:04)
[2018-12-03] MEDS: GABAPENTIN 300 MG CAPSULE (FP) PO SCH ×3 (06:03→21:20)
[2018-12-03] MEDS: CYCLOBENZAPRINE HCL 10 MG TABLET (FP) PO SCH ×3 (06:03→21:20)
[2018-12-03] MEDS ORDERED: PT OWN MED DRAWER 7, Y5N ONE ×3 (06:05→12:10)
[2018-12-03] MEDS: SIMETHICONE 80 MG TAB.CHEW (FP) PO PRN ×2 (06:05→10:14)
[2018-12-03] MEDS: SERTRALINE HCL 50 MG TABLET (FP) PO SCH (10:12)
[2018-12-03] MEDS: PANTOPRAZOLE 20 MG TABLET (FP) PO SCH (10:12)
[2018-12-03] MEDS: DIVALPROEX SODIUM 250 MG TABLET E.C. PO SCH ×2 (10:12→21:21)
[2018-12-03] MEDS: NICOTINE 14 MG/24 HOURS TOPICAL PATCH TD SCH (10:12)
[2018-12-03] MEDS: ATORVASTATIN CA 10 MG TABLET (FP) PO SCH (10:12)
[2018-12-03] MEDS: PRENATAL VITAMINS W/ FOLIC ACID TABLET (FP) PO SCH (10:12)
[2018-12-03] MEDS: ASPIRIN 81 MG CHEWABLE TABLETS PO SCH (10:13)
[2018-12-03] MEDS: MINERAL OIL/PETROLAT/WATER TOPICAL CREAM 113 GM JAR TP SCH ×2 (13:30→21:22)
[2018-12-03] MEDS: IBUPROFEN 400 MG TABLET (FP) PO PRN (17:50)
[2018-12-03] MEDS: THIAMINE HCL 100 MG TABLET (FP) PO SCH (21:20)
[2018-12-03] MEDS: BENZTROPINE MESYLATE 1 MG TABLET (FP) PO SCH (21:20)
[2018-12-03] MEDS: hydrOXYzine HCL 25 MG TABLET (FP) PO PRN (21:20)
[2018-12-04] MEDS: GABAPENTIN 300 MG CAPSULE (FP) PO SCH ×3 (06:51→21:04)
[2018-12-04] MEDS: CYCLOBENZAPRINE HCL 10 MG TABLET (FP) PO SCH ×3 (06:52→21:04)
[2018-12-04] MEDS: SIMETHICONE 80 MG TAB.CHEW (FP) PO PRN ×2 (10:19→21:04)
[2018-12-04] MEDS: DIVALPROEX SODIUM 250 MG TABLET E.C. PO SCH ×2 (10:19→21:04)
[2018-12-04] MEDS: ASPIRIN 81 MG CHEWABLE TABLETS PO SCH (10:19)
[2018-12-04] MEDS: MINERAL OIL/PETROLAT/WATER TOPICAL CREAM 113 GM JAR TP SCH ×2 (10:20→22:29)
[2018-12-04] MEDS: ATORVASTATIN CA 10 MG TABLET (FP) PO SCH (10:20)
[2018-12-04] MEDS: NICOTINE 14 MG/24 HOURS TOPICAL PATCH TD SCH (10:20)
[2018-12-04] MEDS: PRENATAL VITAMINS W/ FOLIC ACID TABLET (FP) PO SCH (10:21)
[2018-12-04] MEDS: SERTRALINE HCL 50 MG TABLET (FP) PO SCH (10:21)
[2018-12-04] MEDS: PANTOPRAZOLE 20 MG TABLET (FP) PO SCH (10:21)
[2018-12-04] MEDS ORDERED: PT OWN MED DRAWER 7, Y5N ONE (20:54)
[2018-12-04] MEDS: THIAMINE HCL 100 MG TABLET (FP) PO SCH (21:04)
[2018-12-04] MEDS: MELATONIN 5 MG TABLETS PO PRN (21:05)
[2018-12-04] MEDS: BENZTROPINE MESYLATE 1 MG TABLET (FP) PO SCH (21:05)
[2018-12-05] MEDS: GABAPENTIN 300 MG CAPSULE (FP) PO SCH ×3 (06:37→21:52)
[2018-12-05] MEDS: CYCLOBENZAPRINE HCL 10 MG TABLET (FP) PO SCH ×3 (06:37→21:52)
[2018-12-05] MEDS: SIMETHICONE 80 MG TAB.CHEW (FP) PO PRN (10:29)
[2018-12-05] MEDS: ASPIRIN 81 MG CHEWABLE TABLETS PO SCH (10:29)
[2018-12-05] MEDS: ATORVASTATIN CA 10 MG TABLET (FP) PO SCH (10:30)
[2018-12-05] MEDS: SERTRALINE HCL 50 MG TABLET (FP) PO SCH (10:30)
[2018-12-05] MEDS: PANTOPRAZOLE 20 MG TABLET (FP) PO SCH (10:30)
[2018-12-05] MEDS: PRENATAL VITAMINS W/ FOLIC ACID TABLET (FP) PO SCH (10:30)
[2018-12-05] MEDS: DIVALPROEX SODIUM 250 MG TABLET E.C. PO SCH ×2 (10:30→21:52)
[2018-12-05] MEDS: NICOTINE 14 MG/24 HOURS TOPICAL PATCH TD SCH (10:31)
[2018-12-05] MEDS: MINERAL OIL/PETROLAT/WATER TOPICAL CREAM 113 GM JAR TP SCH ×2 (10:31→21:54)
[2018-12-05] MEDS ORDERED: PT OWN MED DRAWER 7, Y5N ONE (13:12)
--- NOTE | 2018-12-05 17:19 | PN ---
Psychiatric Progress Note Vital Signs: Vital Signs Period Temp Pulse Resp BP Sys/Whipple Pulse Ox Last 24 Hr 97.6 F 75-87 17-18 105-127/68-85 Date of Session: 12/05/18 Chief Complaint:: " I was feeling dizzy and I want my depakote level." HPI: Day 19 of inpatient rehabilitative care. Hospital course is unremarkable except for recent complaint of dizziness. ROS: Patient is cognitively intact. Gait steady. No somatic complaint offered in this encounter. Patient moves around comfortably. Current Medications: Active Medications Generic Name Dose Route Start Last Admin Trade Name Freq PRN Reason Stop Dose Admin Acetaminophen 650 mg 11/16/18 13:29 Tylenol - PO Q4H PRN FEVER Al Hydroxide/Mg Hydroxide 30 ml 11/16/18 13:29 11/24/18 07:48 Mylanta Oral Suspension - PO 30 ml Q6H PRN Administration DYSPEPSIA Aspirin 81 mg 11/17/18 10:00 12/05/18 10:29 Asa - PO 81 mg DAILY FIONA Administration Atorvastatin Calcium 10 mg 11/17/18 10:00 12/05/18 10:30 Lipitor - PO 10 mg DAILY FIONA Administration Benzocaine 1 applic 11/16/18 13:28 Anbesol - MM Q6H PRN dentalgia Benztropine Mesylate 0.5 mg 11/19/18 22:00 12/04/18 21:05 Cogentin - PO 0.5 mg HS FIONA Administration Colloidal Oatmeal 1 applic 11/28/18 09:19 11/28/18 10:12 Aveeno Soap - TP 1 applic DAILY PRN Administration HYGEINE Cyclobenzaprine HCl 10 mg 11/16/18 14:40 12/05/18 13:14 Flexeril - PO 10 mg TID FIONA Administration Divalproex Sodium 500 mg 11/19/18 11:00 12/05/18 10:30 Depakote - PO 500 mg BID FIONA Administration Ergocalciferol 50,000 unit 11/23/18 10:00 11/30/18 11:31 Drisdol - PO 50,000 unit Q7D@1000 FIONA Administration Eucalyptus/Menthol/Phenol/Sorbitol 1 each 11/16/18 13:29 Cepastat Lozenge - MM Q4H PRN SORE THROAT Gabapentin 600 mg 11/16/18 14:35 12/05/18 13:14 Neurontin - PO 600 mg TID FIONA Administration Guaifenesin 10 ml 11/16/18 13:29 Robitussin - PO Q6H PRN COUGH Hydroxyzine HCl 25 mg 11/19/18 15:58 12/03/18 21:20 Atarax - PO 25 mg Q4H PRN Administration AGITATION Ibuprofen 400 mg 11/16/18 13:29 12/03/18 17:50 Motrin - PO 400 mg Q6H PRN Administration Pain level 4-6 Loperamide HCl 4 mg 11/16/18 13:29 Imodium - PO Q6H PRN DIARRHEA Magnesium Citrate 300 ml 11/16/18 13:29 11/18/18 09:02 Citroma - PO 300 ml Q48H PRN Administration CONSTIPATION Magnesium Hydroxide 30 ml 11/16/18 13:29 11/17/18 17:25 Milk Of Magnesia - PO 30 ml DAILY PRN Administration CONSTIPATION Melatonin 5 mg 11/16/18 22:00 12/04/18 21:05 Melatonin PO 5 mg HS PRN Administration INSOMNIA Multi-Ingredient Lotion 1 applic 12/03/18 12:30 12/05/18 10:31 Eucerin (Small Jar) - TP Not Given BID FIONA Nicotine 14 mg 11/17/18 10:00 12/05/18 10:31 Nicoderm Patch - TD 14 mg DAILY FIONA Administration Nicotine Polacrilex 2 mg 11/16/18 13:29 Nicorette Gum - BUC Q2H PRN NICOTINE REPLACEMENT RX Pantoprazole Sodium 20 mg 11/17/18 10:00 12/05/18 10:30 Protonix - PO 20 mg DAILY FIONA Administration Multivit/Folic Acid/Iron 1 tab 11/17/18 10:00 12/05/18 10:30 Vitamins (Sjr) - PO 1 tab DAILY FIONA Administration Pseudoephedrine/Triprolidine 1 combo 11/16/18 13:29 Actifed - PO TID PRN NASAL CONGESTION Sertraline HCl 50 mg 11/19/18 11:00 12/05/18 10:30 Zoloft - PO 50 mg DAILY FIONA Administration Simethicone 80 mg 11/22/18 12:25 12/05/18 10:29 Mylicon - PO 80 mg QID PRN Administration GAS Thiamine HCl 100 mg 11/16/18 22:00 12/04/18 21:04 Vitamin B1 - PO 100 mg HS FIONA Administration Medication(s) Change(s): No justification, at this time, for medications changes. Current Side Effect: No Lab tests ordered: No Lab tests reviewed: Yes Provider note:: Chart reviewed. Medications revisited. Case discussed with staff. Patient seen. Ms Nugent is observed as well groomed, active and sociable. No evidence of discomfort. She reports feeling dizzy yesterday and " wonders if depakote was not the reason " for her symptom. Patient got reassured. She has been on current regimen for more than two weeks. Stable mental status. Vlproic acid level is requested. Will follow result. Total face to face time:: 25 Mental Status Exam - Mental Status Exam Alert and Oriented to: Time, Place, Person Cognitive Function: Good Patient Appearance: Well Groomed Mood: Hopeful, Euthymic Affect: Appropriate, Normal Range Patient Behavior: Appropriate (well-mannered), Cooperative Speech Pattern: Clear, Appropriate Voice Loudness: Normal Thought Process: Intact, Goal Oriented Thought Disorder: Not Present Hallucinations: Denies Suicidal Ideation: Denies Homicidal Ideation: Denies Insight/Judgement: Good Sleep: Well Appetite: Good Gait/Station: Normal Psychiatric Treatment Plan - Problem List (1) History of bipolar disorder Current Visit: Yes Comment: . (2) Cocaine dependence Current Visit: Yes Qualifiers: Substance use status: uncomplicated Qualified Code(s): F14.20 - Cocaine dependence, uncomplicated Comment: . (3) Nicotine dependence Current Visit: Yes Qualifiers: Nicotine product type: cigarettes Substance use status: uncomplicated Qualified Code(s): F17.210 - Nicotine dependence, cigarettes, uncomplicated Comment: .
[2018-12-05] MEDS: THIAMINE HCL 100 MG TABLET (FP) PO SCH (21:51)
[2018-12-05] MEDS: hydrOXYzine HCL 25 MG TABLET (FP) PO PRN (21:52)
[2018-12-05] MEDS: BENZTROPINE MESYLATE 1 MG TABLET (FP) PO SCH (21:53)
[2018-12-05] MEDS: MELATONIN 5 MG TABLETS PO PRN (21:53)
[2018-12-06] MEDS: CYCLOBENZAPRINE HCL 10 MG TABLET (FP) PO SCH ×3 (06:23→21:52)
[2018-12-06] MEDS: GABAPENTIN 300 MG CAPSULE (FP) PO SCH ×3 (06:23→21:52)
[2018-12-06] MEDS: ASPIRIN 81 MG CHEWABLE TABLETS PO SCH (10:03)
[2018-12-06] MEDS: DIVALPROEX SODIUM 250 MG TABLET E.C. PO SCH ×2 (10:03→21:52)
[2018-12-06] MEDS: ATORVASTATIN CA 10 MG TABLET (FP) PO SCH (10:03)
[2018-12-06] MEDS: PANTOPRAZOLE 20 MG TABLET (FP) PO SCH (10:03)
[2018-12-06] MEDS: NICOTINE 14 MG/24 HOURS TOPICAL PATCH TD SCH (10:03)
[2018-12-06] MEDS: SERTRALINE HCL 50 MG TABLET (FP) PO SCH (10:03)
[2018-12-06] MEDS: SIMETHICONE 80 MG TAB.CHEW (FP) PO PRN (10:03)
[2018-12-06] MEDS: MINERAL OIL/PETROLAT/WATER TOPICAL CREAM 113 GM JAR TP SCH ×2 (10:04→21:54)
[2018-12-06] MEDS: PRENATAL VITAMINS W/ FOLIC ACID TABLET (FP) PO SCH (10:06)
[2018-12-06] MEDS: hydrOXYzine HCL 25 MG TABLET (FP) PO PRN (21:52)
[2018-12-06] MEDS: THIAMINE HCL 100 MG TABLET (FP) PO SCH (21:52)
[2018-12-06] MEDS: BENZTROPINE MESYLATE 1 MG TABLET (FP) PO SCH (21:54)
[2018-12-07] MEDS: CYCLOBENZAPRINE HCL 10 MG TABLET (FP) PO SCH ×3 (06:12→21:32)
[2018-12-07] MEDS: GABAPENTIN 300 MG CAPSULE (FP) PO SCH ×3 (06:12→21:32)
[2018-12-07] MEDS: ERGOCALCIFEROL (VIT D2) 50,000 UNIT (1.25 MG) CAPSULE PO SCH (10:56)
[2018-12-07] MEDS: NICOTINE 14 MG/24 HOURS TOPICAL PATCH TD SCH (10:56)
[2018-12-07] MEDS: ATORVASTATIN CA 10 MG TABLET (FP) PO SCH (10:56)
[2018-12-07] MEDS: PRENATAL VITAMINS W/ FOLIC ACID TABLET (FP) PO SCH (10:56)
[2018-12-07] MEDS: SIMETHICONE 80 MG TAB.CHEW (FP) PO PRN (10:56)
[2018-12-07] MEDS: DIVALPROEX SODIUM 250 MG TABLET E.C. PO SCH ×2 (10:56→21:32)
[2018-12-07] MEDS: ASPIRIN 81 MG CHEWABLE TABLETS PO SCH (10:56)
[2018-12-07] MEDS: SERTRALINE HCL 50 MG TABLET (FP) PO SCH (10:56)
[2018-12-07] MEDS: PANTOPRAZOLE 20 MG TABLET (FP) PO SCH (10:56)
[2018-12-07] MEDS: MINERAL OIL/PETROLAT/WATER TOPICAL CREAM 113 GM JAR TP SCH ×2 (10:58→21:33)
[2018-12-07] MEDS: THIAMINE HCL 100 MG TABLET (FP) PO SCH (21:31)
[2018-12-07] MEDS: hydrOXYzine HCL 25 MG TABLET (FP) PO PRN (21:32)
[2018-12-07] MEDS: BENZTROPINE MESYLATE 1 MG TABLET (FP) PO SCH (21:33)
[2018-12-08] MEDS: CYCLOBENZAPRINE HCL 10 MG TABLET (FP) PO SCH ×3 (06:08→21:29)
[2018-12-08] MEDS: GABAPENTIN 300 MG CAPSULE (FP) PO SCH ×3 (06:08→21:29)
[2018-12-08] MEDS: SIMETHICONE 80 MG TAB.CHEW (FP) PO PRN ×2 (09:21→21:30)
[2018-12-08] MEDS: ASPIRIN 81 MG CHEWABLE TABLETS PO SCH (09:21)
[2018-12-08] MEDS: PRENATAL VITAMINS W/ FOLIC ACID TABLET (FP) PO SCH (09:22)
[2018-12-08] MEDS: SERTRALINE HCL 50 MG TABLET (FP) PO SCH (09:22)
[2018-12-08] MEDS: PANTOPRAZOLE 20 MG TABLET (FP) PO SCH (09:22)
[2018-12-08] MEDS: ATORVASTATIN CA 10 MG TABLET (FP) PO SCH (09:22)
[2018-12-08] MEDS: DIVALPROEX SODIUM 250 MG TABLET E.C. PO SCH ×2 (09:22→21:29)
[2018-12-08] MEDS: MINERAL OIL/PETROLAT/WATER TOPICAL CREAM 113 GM JAR TP SCH ×2 (09:23→21:29)
[2018-12-08] MEDS: NICOTINE 14 MG/24 HOURS TOPICAL PATCH TD SCH (09:23)
[2018-12-08] MEDS ORDERED: PT OWN MED DRAWER 7, Y5N ONE (12:04)
[2018-12-08] MEDS: BENZTROPINE MESYLATE 1 MG TABLET (FP) PO SCH (21:28)
[2018-12-08] MEDS: THIAMINE HCL 100 MG TABLET (FP) PO SCH (21:29)
[2018-12-08] MEDS: MELATONIN 5 MG TABLETS PO PRN (21:30)
[2018-12-09] MEDS: GABAPENTIN 300 MG CAPSULE (FP) PO SCH ×3 (06:19→21:19)
[2018-12-09] MEDS: CYCLOBENZAPRINE HCL 10 MG TABLET (FP) PO SCH ×3 (06:19→21:20)
[2018-12-09] MEDS ORDERED: PT OWN MED DRAWER 7, Y5N ONE ×3 (08:57→21:22)
[2018-12-09] MEDS: ASPIRIN 81 MG CHEWABLE TABLETS PO SCH (10:12)
[2018-12-09] MEDS: NICOTINE 14 MG/24 HOURS TOPICAL PATCH TD SCH (10:12)
[2018-12-09] MEDS: SERTRALINE HCL 50 MG TABLET (FP) PO SCH (10:12)
[2018-12-09] MEDS: PRENATAL VITAMINS W/ FOLIC ACID TABLET (FP) PO SCH (10:12)
[2018-12-09] MEDS: PANTOPRAZOLE 20 MG TABLET (FP) PO SCH (10:12)
[2018-12-09] MEDS: DIVALPROEX SODIUM 250 MG TABLET E.C. PO SCH ×2 (10:12→21:19)
[2018-12-09] MEDS: MINERAL OIL/PETROLAT/WATER TOPICAL CREAM 113 GM JAR TP SCH ×2 (10:12→21:28)
[2018-12-09] MEDS: ATORVASTATIN CA 10 MG TABLET (FP) PO SCH (10:12)
[2018-12-09] MEDS: SIMETHICONE 80 MG TAB.CHEW (FP) PO PRN ×2 (10:14→21:22)
[2018-12-09] MEDS: THIAMINE HCL 100 MG TABLET (FP) PO SCH (21:19)
[2018-12-09] MEDS: BENZTROPINE MESYLATE 1 MG TABLET (FP) PO SCH (21:19)
[2018-12-09] MEDS: MELATONIN 5 MG TABLETS PO PRN (21:20)
[2018-12-10] MEDS: CYCLOBENZAPRINE HCL 10 MG TABLET (FP) PO SCH ×3 (06:19→21:13)
[2018-12-10] MEDS: GABAPENTIN 300 MG CAPSULE (FP) PO SCH ×3 (06:19→21:13)
[2018-12-10] MEDS: PANTOPRAZOLE 20 MG TABLET (FP) PO SCH (10:25)
[2018-12-10] MEDS: ASPIRIN 81 MG CHEWABLE TABLETS PO SCH (10:25)
[2018-12-10] MEDS: DIVALPROEX SODIUM 250 MG TABLET E.C. PO SCH ×2 (10:25→21:13)
[2018-12-10] MEDS: SERTRALINE HCL 50 MG TABLET (FP) PO SCH (10:25)
[2018-12-10] MEDS: NICOTINE 14 MG/24 HOURS TOPICAL PATCH TD SCH (10:25)
[2018-12-10] MEDS: PRENATAL VITAMINS W/ FOLIC ACID TABLET (FP) PO SCH (10:25)
[2018-12-10] MEDS: ATORVASTATIN CA 10 MG TABLET (FP) PO SCH (10:25)
[2018-12-10] MEDS: MINERAL OIL/PETROLAT/WATER TOPICAL CREAM 113 GM JAR TP SCH ×2 (10:26→21:14)
[2018-12-10] MEDS: SIMETHICONE 80 MG TAB.CHEW (FP) PO PRN ×2 (10:26→19:58)
[2018-12-10] MEDS ORDERED: PT OWN MED DRAWER 7, Y5N ONE (19:57)
[2018-12-10] MEDS: THIAMINE HCL 100 MG TABLET (FP) PO SCH (21:13)
[2018-12-10] MEDS: hydrOXYzine HCL 25 MG TABLET (FP) PO PRN (21:13)
[2018-12-10] MEDS: BENZTROPINE MESYLATE 1 MG TABLET (FP) PO SCH (21:14)
[2018-12-11] MEDS: GABAPENTIN 300 MG CAPSULE (FP) PO SCH ×3 (06:48→21:17)
[2018-12-11] MEDS: CYCLOBENZAPRINE HCL 10 MG TABLET (FP) PO SCH ×3 (06:48→21:17)
[2018-12-11] MEDS: NICOTINE 14 MG/24 HOURS TOPICAL PATCH TD SCH (10:18)
[2018-12-11] MEDS: DIVALPROEX SODIUM 250 MG TABLET E.C. PO SCH ×2 (10:19→21:17)
[2018-12-11] MEDS: ATORVASTATIN CA 10 MG TABLET (FP) PO SCH (10:19)
[2018-12-11] MEDS: PANTOPRAZOLE 20 MG TABLET (FP) PO SCH (10:19)
[2018-12-11] MEDS: PRENATAL VITAMINS W/ FOLIC ACID TABLET (FP) PO SCH (10:19)
[2018-12-11] MEDS: SERTRALINE HCL 50 MG TABLET (FP) PO SCH (10:19)
[2018-12-11] MEDS: SIMETHICONE 80 MG TAB.CHEW (FP) PO PRN (10:19)
[2018-12-11] MEDS: ASPIRIN 81 MG CHEWABLE TABLETS PO SCH (10:19)
[2018-12-11] MEDS: MINERAL OIL/PETROLAT/WATER TOPICAL CREAM 113 GM JAR TP SCH ×2 (10:20→21:18)
[2018-12-11] MEDS: THIAMINE HCL 100 MG TABLET (FP) PO SCH (21:16)
[2018-12-11] MEDS: hydrOXYzine HCL 25 MG TABLET (FP) PO PRN (21:17)
[2018-12-11] MEDS: BENZTROPINE MESYLATE 1 MG TABLET (FP) PO SCH (21:18)
[2018-12-12] MEDS: GABAPENTIN 300 MG CAPSULE (FP) PO SCH ×3 (06:43→21:00)
[2018-12-12] MEDS: CYCLOBENZAPRINE HCL 10 MG TABLET (FP) PO SCH ×3 (06:43→21:00)
[2018-12-12] MEDS: SIMETHICONE 80 MG TAB.CHEW (FP) PO PRN (10:00)
[2018-12-12] MEDS: SERTRALINE HCL 50 MG TABLET (FP) PO SCH (10:00)
[2018-12-12] MEDS: PRENATAL VITAMINS W/ FOLIC ACID TABLET (FP) PO SCH (10:00)
[2018-12-12] MEDS: ASPIRIN 81 MG CHEWABLE TABLETS PO SCH (10:00)
[2018-12-12] MEDS: DIVALPROEX SODIUM 250 MG TABLET E.C. PO SCH ×2 (10:00→21:00)
[2018-12-12] MEDS: PANTOPRAZOLE 20 MG TABLET (FP) PO SCH (10:00)
[2018-12-12] MEDS: ATORVASTATIN CA 10 MG TABLET (FP) PO SCH (10:00)
[2018-12-12] MEDS: MINERAL OIL/PETROLAT/WATER TOPICAL CREAM 113 GM JAR TP SCH ×2 (10:01→21:03)
[2018-12-12] MEDS: NICOTINE 14 MG/24 HOURS TOPICAL PATCH TD SCH (10:01)
[2018-12-12] MEDS: hydrOXYzine HCL 25 MG TABLET (FP) PO PRN (21:00)
[2018-12-12] MEDS: THIAMINE HCL 100 MG TABLET (FP) PO SCH (21:01)
[2018-12-12] MEDS: MELATONIN 5 MG TABLETS PO PRN (21:01)
[2018-12-12] MEDS: BENZTROPINE MESYLATE 1 MG TABLET (FP) PO SCH (21:03)
[2018-12-13] MEDS: CYCLOBENZAPRINE HCL 10 MG TABLET (FP) PO SCH ×3 (06:09→21:45)
[2018-12-13] MEDS: GABAPENTIN 300 MG CAPSULE (FP) PO SCH ×3 (06:09→21:44)
[2018-12-13] MEDS ORDERED: PT OWN MED DRAWER 7, Y5N ONE (08:41)
[2018-12-13] MEDS: MINERAL OIL/PETROLAT/WATER TOPICAL CREAM 113 GM JAR TP SCH ×2 (09:53→21:46)
[2018-12-13] MEDS: PANTOPRAZOLE 20 MG TABLET (FP) PO SCH (09:53)
[2018-12-13] MEDS: PRENATAL VITAMINS W/ FOLIC ACID TABLET (FP) PO SCH (09:53)
[2018-12-13] MEDS: DIVALPROEX SODIUM 250 MG TABLET E.C. PO SCH ×2 (09:53→21:45)
[2018-12-13] MEDS: NICOTINE 14 MG/24 HOURS TOPICAL PATCH TD SCH (09:53)
[2018-12-13] MEDS: SERTRALINE HCL 50 MG TABLET (FP) PO SCH (09:53)
[2018-12-13] MEDS: ASPIRIN 81 MG CHEWABLE TABLETS PO SCH (09:54)
[2018-12-13] MEDS: ATORVASTATIN CA 10 MG TABLET (FP) PO SCH (09:54)
[2018-12-13] MEDS: SIMETHICONE 80 MG TAB.CHEW (FP) PO PRN (09:55)
--- NOTE | 2018-12-13 11:43 | PN ---
[facility] Progress Note (SOAP) Subjective: Patient to be discharged tomorrow HOSPITAL COURSE: Attended 25 groups, had 2 individual sessions with her counselor, 6 sessions with the psychiatric provider , was adherent to her treatment plan and her prescribed rehab medication regimen. It should be noted that the patient has HIV infection, however, she did not take her medication during her stay in rehab. Patient stated that the Odesefy causes diarrhea and she did not want that to happen while she was in rehab. Patient reports adherence to her HIV regimen and appointments while in the community. She did not present with symptoms of opportunistic infections related to HIV during her time in rehab. Objective: - Physical General Appearance: Appropriate, Fully Oriented, Alert HEENTM: EOMI, KIYA, poor dentition Respiratory: Lungs Clear, Normal Breath Sounds, No Respiratory Distress, No Accessory Muscle Use Neck: supple Cardiology: Regular Rhythm & rate, s1 s2 audible Abdominal: +Bowel Sounds, Non Tender, Soft Musculoskeletal: full range of Motion, Gait Steady, Pelvis Stable, full weight bearing Neurological: behavioral health technician II-XII intact, , Motor Strength 5/5, Integumentary: Color consistent throughout trunk and extremities, Dry, Warm, adequate skin turgor Lymphatic: lymph nodes non-palpable. 12/13/18 11:36 12/13/18 11:43 CBC, BMP 11/16/18 12:45 11/16/18 12:45 Vital Signs (72 hours) 12/11/18 12/11/18 12/12/18 03:30 07:25 00:30 Temperature 97.3 F L Pulse Rate 80 Respiratory 18 18 18 Rate Blood Pressure 110/79 12/12/18 12/12/18 12/13/18 03:30 07:23 00:30 Temperature 97.5 F L Pulse Rate 74 Respiratory 18 18 16 Rate Blood Pressure 115/76 12/13/18 12/13/18 03:30 07:21 Temperature 97.6 F Pulse Rate 79 Respiratory 18 16 Rate Blood Pressure 121/86 12/13/18 11:45 Assessment: Medically stable for discharge Discharge Dx: HIV infection Cocaine dependence Obesity Insomnia 12/13/18 11:46 Plan: ON-going continuation of care: Patient will receive aftercare at [facility]. She receives primary care, HIV care, and mental health care at [facility] in [place]. Patient was encouraged to make an appointment at [facility] to follow up with HIV care. Patient states she has enough medication at home and does not need prescriptions.
[2018-12-13] MEDS: THIAMINE HCL 100 MG TABLET (FP) PO SCH (21:44)
[2018-12-13] MEDS: hydrOXYzine HCL 25 MG TABLET (FP) PO PRN (21:45)
[2018-12-13] MEDS: BENZTROPINE MESYLATE 1 MG TABLET (FP) PO SCH (21:46)
[2018-12-14] MEDS: GABAPENTIN 300 MG CAPSULE (FP) PO SCH (06:23)
[2018-12-14] MEDS: CYCLOBENZAPRINE HCL 10 MG TABLET (FP) PO SCH (06:23)
[2018-12-14 07:12] VITALS: BP 117/83; PULSE 77; TEMP 97.7
[2018-12-14] MEDS ORDERED: PT OWN MED DRAWER 7, Y5N ONE (08:28)
--- NOTE | 2018-12-14 08:33 | PN ---
[facility] Progress Note Note: Psychiatric nurse practitioner: Patient scheduled to be discharge today. A 30 day prescription of zoloft 50mg + Depakote 500mg BID + Cogentin 0.5mg HS was electronically sent to [facility] @ [address] [place] [id number].
== END 2018-12-14 08:28 | disposition home or self-care (01) | DRG 772 ==
LOC: YASAS 12:12 → Y3W 14:02 → Y3E 15:00
PROVIDERS: ADMIT Neuromusculoskeletal Medicine & OMM; ATTEND Neuromusculoskeletal Medicine & OMM
PROC: HZ42ZZZ Group Counseling for Substance Abuse Treatment, Cognitive-Behavioral (ICD-10-PCS; principal; 2018-11-16)
DX: F14.20 Cocaine dependence, uncomplicated (principal); F17.210 Nicotine dependence, cigarettes, uncomplicated; F19.24 Other psychoactive substance dependence with psychoactive substance-induced mood disorder; F31.9 Bipolar disorder, unspecified; Z21 Asymptomatic human immunodeficiency virus [HIV] infection status; E78.5 Hyperlipidemia, unspecified; G47.00 Insomnia, unspecified; M54.41 Lumbago with sciatica, right side; E66.9 Obesity, unspecified; Z68.30 Body mass index [BMI] 30.0-30.9, adult; Z91.5 Personal history of self-harm
CPT/HCPCS: 36415; 71046-TC-FY; 80053; 80164; 81003; 81025; 85027; 86593; 87086; 93005; 93010